=== PATIENT | male | born 1985 | race Caucasian/White ===

== ENCOUNTER 2019-01-05 23:41 | Emergency (ER) | payer OTHER ==
--- NOTE | 2019-01-06 07:48 | RAD ---
XR Ankle Rt 3 View STANDARD History: Pain Comparison: None. Findings: No acute fracture or malalignment. Mild bimalleolar edema. Moderate joint effusion of the a nkle. Mild sclerosis of the Stieda process. Mild ossification of the dorsal capsule at the talonavicular albin int. Impression: Moderate ankle joint effusion without acute displaced fracture.
== END 2019-01-06 00:50 | disposition home or self-care (01) ==
LOC: SCSER 23:41
DX: S93.401A Sprain of unspecified ligament of right ankle, initial encounter (principal); X50.1XXA Overexertion from prolonged static or awkward postures, initial encounter